=== PATIENT | male | born 1975 | race African-American/Black ===

== ENCOUNTER 2016-11-06 19:52 | Emergency (ER) | payer OTHER ==
[2016-11-06 20:50] VITALS: BP 136/76
--- NOTE | 2016-11-06 23:28 | UC ---
Lower Extremity/Ankle HPI - HPI Summary HPI Summary: PLAYING SOCCER A WEEK AGO. FELT A POP IN THE BACK OF HIS RIGHT KNEE. SINCE THEN HAS DEVELOPED BRUISING AND UPPER RIGHT LEG SWELLING. NO NUMBNESS. - History of Current Complaint Chief Complaint: UCLaceration Stated Complaint: PAIN & SWELLING IN THIGH Time Seen by Provider: 11/06/16 22:02 Hx Obtained From: Patient Onset/Duration: Gradual Onset, Lasting Days, Still Present Severity Initially: Mild Severity Currently: Moderate Pain Intensity: 6 Pain Scale Used: 0-10 Numeric Aggravating Factor(s): Standing, Ambulation Alleviating Factor(s): OTC Meds - IBUPROFEN Able to Bear Weight: Yes - Allergies/Home Medications Allergies/Adverse Reactions: Allergies Allergy/AdvReac Type Severity Reaction Status Date / Time No Known Allergies Allergy Verified 10/26/16 15:03 Home Medications: Home Medications Aspirin [Aspirin 81 MG TAB] 1 tab PO DAILY 11/06/16 [History Confirmed 11/06/16] Everolimus (Immunosuppressant) [Zortress] 5 tab PO BID 11/06/16 [History Confirmed 11/06/16] Sulfamethox/Trimethoprim SS* [Bactrim SS 400/80 TAB*] 1 tab PO 11/06/16 [History ] Tacrolimus [Tacrolimus 1 MG-] 7 mg PO DAILY 11/06/16 [History Confirmed 11/06/16 ] PMH/Surg Hx/FS Hx/Imm Hx - Additional Past Medical History Additional PMH: HEPATITIS, LIVER CANCER S/P TRANSPLANT Endocrine History Of: Denies: Diabetes, Thyroid Disease Cardiovascular History Of: Denies: Cardiac Disorders, Hypertension, Pacemaker/ICD, Congestive Heart Failure Respiratory History Of: Denies: COPD, Asthma GI/ History Of: Denies: Ulcer, Renal Disease - Surgical History Surgical History: Yes Surgery Procedure, Year, and Place: LIVER BIOPSY - [facility]. [facility] FOR LIVER TUMOR- [place]- 09/2014. LIVER TRANSPLANT 01/2016. LYMPH NODES REMOVED CHEST AREA - Family History Known Family History: Positive: Hypertension Negative: Blood Disorder - Social History Alcohol Use: None Substance Use Type: None Smoking Status (MU): Never Smoked Tobacco - Immunization History Most Recent Influenza Vaccination: season Review of Systems Constitutional: Negative Skin: Bruising Respiratory: Negative Cardiovascular: Negative Gastrointestinal: Negative Musculoskeletal: Edema, Myalgia All Other Systems Reviewed And Are Negative: Yes Physical Exam Triage Information Reviewed: Yes Appearance: Well-Appearing, No Pain Distress, Well-Nourished Vital Signs: Initial Vital Signs Temp 98 F 11/06/16 20:41 Pulse 81 11/06/16 20:41 Resp 18 11/06/16 20:41 BP 136/76 11/06/16 20:41 Pulse Ox 100 11/06/16 20:41 Vital Signs Reviewed: Yes Eyes: Positive: Conjunctiva Clear ENT: Positive: Hearing grossly normal Neck: Positive: Supple Respiratory: Positive: No respiratory distress, No accessory muscle use Cardiovascular: Positive: Pulses Normal - DP PULSES 2+ Abdomen Description: Positive: Soft Musculoskeletal: Positive: ROM Intact, Edema @ - RIGHT UPPER LEG, Other: - TTP RIGHT HAMSTRINGS. NO CALF TENDERNESS. UPPER LEG CIRCUMFERENCE: RIGHT 62CM, LEFT 57CM CALF CIRCUMFERENCE: RIGHT 40CM, LEFT 40CM Neurological: Positive: Alert Psychological: Positive: Age Appropriate Behavior Skin: Positive: Other - ECCHYMOSIS LEFT POSTERIOR LEG JUST PROXIMAL TO POPLITEAL FOSSA Lower Extremity Course/Dx - Differential Dx/Diagnosis Differential Diagnosis/HQI/PQRI: Compartment Syndrome, Contusion, DVT, Phlebitis , Strain Provider Diagnoses: HEMATOMA/HAMSTRING INJURY RIGHT LEG Discharge - Discharge Plan Condition: Stable Disposition: HOME Patient Education Materials: Hamstring Injury (ED), Hematoma (ED) Referrals: Juanpablo Hoffman MD [Primary Care Provider] - 1 Day Additional Instructions: PLEASE CALL YOUR PCP FIRST THING TOMORROW MORNING TO SCHEDULE AN ULTRASOUND OF YOUR RIGHT LEG. GO TO THE ER WITHOUT FAIL IF YOU HAVE WORSENING PAIN, CHEST PAIN , SHORTNESS OF BREATH, PALPITATIONS, NAUSEA, FEVER, FOOT NUMBNESS OR ANY OTHER CONCERNING SYMPTOMS.
== END 2016-11-06 23:05 | disposition home or self-care (01) ==
LOC: UCEAST 19:52
DX: S70.11XA Contusion of right thigh, initial encounter (principal); X58.XXXA Exposure to other specified factors, initial encounter; Y93.66 Activity, soccer; Y92.9 Unspecified place or not applicable; Z94.4 Liver transplant status
CPT/HCPCS: 99211; G0463

== ENCOUNTER 2016-11-15 19:32 | Emergency (ER) | payer OTHER ==
--- NOTE | 2016-11-15 21:15 | ED ---
Lower Extremity - HPI Summary HPI Summary: 41M presents with right thigh pain for a two week. He states the initially injured his leg in soccer and felt a pop in his thigh. He states the pain radiates from his thigh into his knee. He has ecchymosis of the area and admits to swelling. He has tried tyenlol and ibuprofen for pain that only help temporarily. He denies any recent travel and is not a smoker. He denies any family history of blood clots. He takes a baby aspirin a day. He is currently waiting for a liver transplant. He denies any chest pain or SOB. The pain in his calf is constant but is worst with standing. - History of Current Complaint Chief Complaint: EDExtremityLower Stated Complaint: RIGHT KNEE PAIN Time Seen by Provider: 11/15/16 20:09 Pain Intensity: 6 - Allergies/Home Medications Allergies/Adverse Reactions: Allergies Allergy/AdvReac Type Severity Reaction Status Date / Time No Known Allergies Allergy Verified 11/15/16 19:45 PMH/Surg Hx/FS Hx/Imm Hx Endocrine/Hematology History: Denies: Hx Diabetes, Hx Thyroid Disease Cardiovascular History: Denies: Hx Congestive Heart Failure, Hx Hypertension, Hx Pacemaker/ICD Respiratory History: Denies: Hx Asthma, Hx Chronic Obstructive Pulmonary Disease (COPD) GI History: Denies: Hx Ulcer History: Denies: Hx Dialysis, Hx Renal Disease Sensory History: Denies: Hx Contacts or Glasses, Hx Hearing Aid Opthamlomology History: Denies: Hx Contacts or Glasses Psychiatric History: Denies: Hx Panic Disorder - Cancer History Cancer Type, Location and Year: LIVER - Surgical History Surgery Procedure, Year, and Place: LIVER BIOPSY - [facility]. [facility] FOR LIVER TUMOR- [place]- 09/2014. LIVER TRANSPLANT 01/2016. LYMPH NODES REMOVED CHEST AREA Hx Anesthesia Reactions: No Infectious Disease History: No Infectious Disease History: Reports: Hx Hepatitis Denies: Hx Clostridium Difficile, Hx Human Immunodeficiency Virus (HIV), Hx of Known/Suspected MRSA, Hx Shingles, Hx Tuberculosis, Hx Known/Suspected VRE, Hx Known/Suspected VRSA, History Other Infectious Disease, Traveled Outside the in Last 30 Days - Family History Known Family History: Positive: Hypertension Negative: Blood Disorder - Social History Alcohol Use: None Substance Use Type: Reports: None Smoking Status (MU): Never Smoked Tobacco Review of Systems Negative: Fever Negative: Chest Pain Negative: Shortness Of Breath Positive: Myalgia - right thigh Positive: Bruising - right thigh All Other Systems Reviewed And Are Negative: Yes Physical Exam Triage Information Reviewed: Yes Vital Signs On Initial Exam: Initial Vitals Temp Pulse Resp BP Pulse Ox 97 F 69 18 133/74 100 11/15/16 19:39 11/15/16 19:39 11/15/16 19:39 11/15/16 19:39 11/15/16 19:39 Vital Signs Reviewed: Yes Appearance: Positive: Well-Appearing Skin: Positive: Warm, Dry Head/Face: Positive: Normal Head/Face Inspection Eyes: Positive: Normal, Conjunctiva Clear Respiratory/Lung Sounds: Positive: Clear to Auscultation, Breath Sounds Present Cardiovascular: Positive: Normal, RRR Musculoskeletal: Positive: Strength/ROM Intact, Limited @ - right knee due to pain, Other - large area of ecchymosis noted from posterior midright thigh to 5cm below posterior aspect of knee, tender over this are of ecchymosis, good pulses, capillary refill <2secs. Negative: Aurelia Sign Right Diagnostics - Vital Signs Vital Signs Temp Pulse Resp BP Pulse Ox 11/15/16 19:44 97 F 72 18 133/74 100 11/15/16 19:39 97 F 69 18 133/74 100 - Laboratory Lab Statement: Any lab studies that have been ordered have been reviewed, and results considered in the medical decision making process. Lower Extremity Course/Dx - Course Course Of Treatment: 41M presents with right thigh pain s/p hearing pop when playing soccer two weeks ago. denies any numbness or tingling. states pain has been getting worst. seen at urgent care a week ago that recommended u/s. takes daily aspirin and has hepatitis and is in need of liver transplant. no risk factors DVT. large area of eccymosis noted on exam of right thigh. u/s no DVT. suspect could have hamstring tear so will have follow up with ortho. patient understands and agrees with plan - Diagnoses Differential Diagnosis/HQI/PQRI: Positive: Contusion, DVT, Sprain, Strain, Other - hematoma Provider Diagnoses: Right thigh pain Discharge - Discharge Plan Condition: Good Disposition: HOME Prescriptions: oxyCODONE TAB* [Roxycodone TAB 5 mg*] 5 mg PO Q6H PRN #6 tab MDD 4 PRN Reason: Pain Patient Education Materials: Hamstring Injury (ED) Referrals: Juanpablo Hoffman MD [Primary Care Provider] - Francisco Gruber MD [Medical Doctor] - Additional Instructions: Follow up with ortho for potential hamstring tear Take ibuprofen every 6 hours as allowed by liver specialist, take narcotic for break through pain Try to keep off leg, Ice, elevate Place miky on leg as tolerate Return to ED if develop any new or worsening symptoms
[2016-11-15 22:37] VITALS: BP 142/78
--- NOTE | 2016-11-15 22:46 | RAD ---
Indication: Right leg edema. Duplex Doppler sonography of the deep venous system of the right lower extremity deep venous system was performed. Bilaterally the common femoral veins appear patent and compressible. Right proximal greater saphenous vein, proximal deep femoral vein, femoral vein, popliteal vein, posterior tibial veins and peroneal veins appear patent and compressible. IMPRESSION: NO EVIDENCE OF DEEP VENOUS THROMBOSIS IS IDENTIFIED.
== END 2016-11-15 23:09 | disposition home or self-care (01) ==
LOC: ED 19:32
DX: M79.651 Pain in right thigh (principal); S70.11XA Contusion of right thigh, initial encounter; M25.561 Pain in right knee; X50.9XXA Other and unspecified overexertion or strenuous movements or postures, initial encounter; Y93.66 Activity, soccer; Y92.9 Unspecified place or not applicable
CPT/HCPCS: 99282

== ENCOUNTER 2019-06-16 18:40 | Emergency (ER) | payer OTHER ==
[2019-06-16] MEDS ORDERED: NS 0.9% 1000 ML** 1,000 ML IV ONE (22:49)
--- NOTE | 2019-06-16 22:50 | ED ---
Syncope/Near Syncope - HPI Summary HPI Summary: Patient complains of recurrent fatigue and episodes of lightheadedness with 3 episodes of almost passing out over the past month. Patient states symptoms quickly resolved with rest. When episode occurred while patient was getting up out of bed, second of episode occurred while patient was playing soccer, third episode occurred today while patient was loading the car trunk. Patient plays soccer likely, denies any chest pain, shortness of breath or lightheadedness with regular exertion. Denies fever, cough, sore throat, CP, SOB, N/V/D, abdominal pain, change in urine, change in BM. Patient has history of liver transplant in 2016, currently taking medications for same with no recent changes in meds or doses. Denies new supplements, excessive caffeine, EtOH, recreational drug use. Medical history is liver transplant. No prior cardiac history. - History Of Current Complaint Chief Complaint: EDDizziness Time Seen by Provider: 06/16/19 22:47 Hx Obtained From: Patient, Family/Cell Pourer Onset/Duration: Lasting Weeks Timing: Minutes Activity At Onset: Other Associated Head Trauma: No Aggravating Factor(s): Position Change, Exertion, Other Alleviating Factor(s): Spontaneous Resolution, Rest Associated Signs And Symptoms: Lightheadedness - Allergies/Home Medications Allergies/Adverse Reactions: Allergies Allergy/AdvReac Type Severity Reaction Status Date / Time No Known Allergies Allergy Verified 06/16/19 18:51 PMH/Surg Hx/FS Hx/Imm Hx Endocrine/Hematology History: Denies: Hx Diabetes, Hx Thyroid Disease Cardiovascular History: Denies: Hx Congestive Heart Failure, Hx Hypertension, Hx Pacemaker/ICD Respiratory History: Denies: Hx Asthma, Hx Chronic Obstructive Pulmonary Disease (COPD) GI History: Denies: Hx Ulcer History: Denies: Hx Dialysis, Hx Renal Disease Sensory History: Denies: Hx Contacts or Glasses, Hx Hearing Aid Opthamlomology History: Denies: Hx Contacts or Glasses EENT History: Denies: Hx Deafness Psychiatric History: Denies: Hx Panic Disorder - Cancer History Cancer Type, Location and Year: LIVER - Surgical History Surgery Procedure, Year, and Place: LIVER BIOPSY - [facility]. [facility] FOR LIVER TUMOR- [place]- 09/2014. LIVER TRANSPLANT 01/2016. LYMPH NODES REMOVED CHEST AREA Hx Anesthesia Reactions: No Infectious Disease History: Yes Infectious Disease History: Reports: Hx Hepatitis Denies: Hx Clostridium Difficile, Hx Human Immunodeficiency Virus (HIV), Hx of Known/Suspected MRSA, Hx Shingles, Hx Tuberculosis, Hx Known/Suspected VRE, Hx Known/Suspected VRSA, History Other Infectious Disease, Traveled Outside the [place] in Last 30 Days - Family History Known Family History: Positive: Hypertension Negative: Blood Disorder - Social History Alcohol Use: None Substance Use Type: Reports: None Smoking Status (MU): Never Smoked Tobacco Review of Systems Positive: Fatigue Eyes: Negative ENT: Negative Cardiovascular: Negative Respiratory: Negative Gastrointestinal: Negative Genitourinary: Negative Musculoskeletal: Negative Skin: Negative Neurological: Other Psychological: Normal All Other Systems Reviewed And Are Negative: Yes Physical Exam Triage Information Reviewed: Yes Vital Signs On Initial Exam: Initial Vitals Temp Pulse Resp BP Pulse Ox 98.9 F 78 15 159/97 98 06/16/19 18:49 06/16/19 18:49 06/16/19 18:49 06/16/19 18:49 06/16/19 18:49 Vital Signs Reviewed: Yes Appearance: Positive: Well-Appearing Skin: Positive: Warm Head/Face: Positive: Normal Head/Face Inspection Eyes: Positive: Normal Neck: Positive: Supple Respiratory/Lung Sounds: Positive: Clear to Auscultation Cardiovascular: Positive: Normal Abdomen Description: Positive: Nontender Musculoskeletal: Positive: Normal Neurological: Positive: Normal Psychiatric: Positive: Normal AVPU Assessment: Alert - Kvng Coma Scale Best Eye Response: 4 - Spontaneous Best Motor Response: 6 - Obeys Commands Best Verbal Response: 5 - Oriented Coma Scale Total: 15 Procedures - Sedation Patient Received Moderate/Deep Sedation with Procedure: No Diagnostics - Vital Signs Vital Signs Temp Pulse Resp BP Pulse Ox 06/16/19 21:49 97.8 F 79 15 156/91 97 06/16/19 18:49 98.9 F 78 15 159/97 98 - Laboratory Result Diagrams: 06/16/19 23:12 06/16/19 23:12 Lab Statement: Any lab studies that have been ordered have been reviewed, and results considered in the medical decision making process. Course/Dx Course Of Treatment: Patient complains of recurrent fatigue and episodes of lightheadedness with 3 episodes of almost passing out over the past month. Patient states symptoms quickly resolved with rest. When episode occurred while patient was getting up out of bed, second of episode occurred while patient was playing soccer, third episode occurred today while patient was loading the car trunk. Patient plays soccer likely, denies any chest pain, shortness of breath or lightheadedness with regular exertion. Denies fever, cough, sore throat, CP, SOB, N/V/D, abdominal pain, change in urine, change in BM. Patient has history of liver transplant in 2016, currently taking medications for same with no recent changes in meds or doses. Denies new supplements, excessive caffeine, EtOH, recreational drug use. Medical history is liver transplant. No prior cardiac history. Vital signs within normal limits. Labs within normal limits. EKG sinus rhythm, heart rate of 78, no prior EKG on file. Advised patient follow up with primary care and cardiology for general cardiac workup. He understands and approves Plan. - Diagnoses Provider Diagnoses: Lightheadedness Discharge ED - Sign-Out/Discharge Documenting (check all that apply): Patient Departure - Discharge Plan Condition: Stable Disposition: HOME Patient Education Materials: Near Syncope (ED), Lightheadedness (ED) Referrals: Juanpablo Hoffman MD [Primary Care Provider] - Lalit Dillon MD [Medical Doctor] - Additional Instructions: Follow-up with your primary care doctor and with cardiology Dr Dillon for a more complete workup of your heart as a source of the lightheadedness and near passing out. Return to the ED for any worsening symptoms. - Billing Disposition and Condition Condition: STABLE Disposition: Home
[2019-06-16 23:22] LABS: ABS Basophils 0.1 10^3/ul (0-0.2); ABS Eosinophils 0.1 10^3/ul (0-0.6); ABS Lymphocytes 2.1 10^3/ul (1.0-4.8); ABS Monocytes 0.8 10^3/ul (0-0.8); ABS Neutrophils 2.4 10^3/ul (1.5-7.7); Eosinophil % 2.1 %; Hematocrit 45 % (42-52); Hemoglobin 15.2 g/dL (14.0-18.0); Mean Corpuscular HGB Conc 34 g/dL (31-36); Mean Corpuscular Hemoglobin 29 pg (27-31); Mean Corpuscular Volume 84 fL (80-94); Nucleated Red Blood Cells % 0.1; Platelet Count 198 10^3/uL (150-450); Red Blood Count 5.31 10^6 /uL (4.18-5.48); Red Cell Distribution Width 13 % (10-15); White Blood Count 5.5 10^3/uL (3.5-10.8)
[2019-06-16 23:38] LABS: Albumin 4.2 g/dL (3.2-5.2); Albumin/Globulin Ratio 1.4 (1-3); C Reactive Protein 2.4 mg/L (<8.01); Calcium 9.6 mg/dL (8.6-10.3); EGFR African American 72.2 (>60); EGFR Non-African American 59.7 (>60); Globulin 2.9 g/dL (2-4); Magnesium 1.9 mg/dL (1.9-2.7); Potassium 4.4 mmol/L (3.5-5.0); Total Protein 7.1 g/dL (6.4-8.9)
[2019-06-16 23:40] LABS: Troponin I 0.01 ng/mL (<0.04)
[2019-06-17 00:19] LABS: TSH (Thyroid Stimulating Horm) 1.92 mcIU/mL (0.34-5.60)
[2019-06-17 01:03] VITALS: BP 139/84
== END 2019-06-17 00:40 | disposition home or self-care (01) ==
LOC: ED 18:40
DX: R42 Dizziness and giddiness (principal); R53.83 Other fatigue; Z79.82 Long term (current) use of aspirin
CPT/HCPCS: 36415; 80053; 83735; 84443; 84484; 85025; 86140; 93005; 99283